=== PATIENT | female | born 2000 | race African-American/Black ===

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

== ENCOUNTER 2019-06-10 12:27 | Emergency (ER) | payer OTHER ==
--- NOTE | 2019-06-10 12:59 | ER Document Report ---
ED Medical Screen (RME) - General Chief Complaint: Abdominal Cramping Stated Complaint: ABDOMINAL CRAMPING Time Seen by Provider: 06/10/19 12:55 Primary Care Provider: KAVON ANDREWS MD [Primary Care Provider] - Follow up as needed Mode of Arrival: Ambulatory Information source: Patient Notes: 19-year-old female presented to ED for lower abdominal/pelvic cramping. She states she has had this pain for about 2 weeks. She states she does have frequent urination but no urgency or pain. She states she did have vaginal spotting for about 5 days but that has stopped she states she has very irregular periods and she is aware that last regular menstrual cycle was in the middle of May. Dates she has had nausea no vomiting 2 stools a day, denies any fever. States the cramping is on both sides. She states she was smoking 2 to 3 cigarettes a day but has not smoked in a couple months. States drinks maybe once a month. He denies any illicit drugs. Has any past medical history. States her blood pressure has been high but she has not seen a doctor for it and does not take medications for it. I have greeted and performed a rapid initial assessment of this patient. A comprehensive ED assessment and evaluation of the patient, analysis of test results and completion of medical decision making process will be conducted by an additional ED providers. TRAVEL OUTSIDE OF THE [place] IN LAST 30 DAYS: No - Related Data Allergies/Adverse Reactions: No Known Allergies Allergy (Verified 12/31/18 08:51) Past Medical History Renal/ Medical History: Denies: Hx Peritoneal Dialysis - Immunizations Immunizations up to date: Yes Hx Diphtheria, Pertussis, Tetanus Vaccination: Yes Physical Exam - Vital signs Vitals: Temp Pulse Resp BP Pulse Ox 98.3 F 109 H 18 141/90 H 100 06/10/19 12:41 06/10/19 12:41 06/10/19 12:41 06/10/19 12:41 06/10/19 12:41 Course - Vital Signs Vital signs: Temp Pulse Resp BP Pulse Ox 98.3 F 109 H 18 141/90 H 100 06/10/19 12:41 06/10/19 12:41 06/10/19 12:41 06/10/19 12:41 06/10/19 12:41 Doctor's Discharge - Discharge Referrals: KAVON ANDREWS MD [Primary Care Provider] - Follow up as needed
[2019-06-10] MEDS ORDERED: NORMAL SALINE 1000 ML 1,000 ML IV ONE (13:00)
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
[2019-06-10 13:54] LABS: APPEARANCE,URINE CLEAR; BILIRUBIN,URINE NEGATIVE (NEGATIVE); COLOR,URINE YELLOW; GLUCOSE, URINE NEGATIVE (NEGATIVE); KETONES,URINE NEGATIVE (NEGATIVE); PROTEIN,URINE NEGATIVE (NEGATIVE); URINE SPECIFIC GRAVITY 1.005; UROBILINOGEN,URINE NEGATIVE mg/dL (<2.0)
[2019-06-10 14:10] LABS: ABSOLUTE BASOPHILS # (AUTO) 0.1 10^3/uL (0.0-0.2); ABSOLUTE EOSINOPHILS # (AUTO) 0.1 10^3/uL (0.0-0.6); ABSOLUTE LYMPHOCYTES (AUTO) 2.7 10^3/uL (0.5-4.7); ABSOLUTE MONOCYTES (AUTO) 0.7 10^3/uL (0.1-1.4); ABSOLUTE NEUT (AUTO) 3.8 10^3/uL (1.7-8.2); BASOPHILS % (AUTO) 0.9 % (0-2); EOSINOPHILS % (AUTO) 1.2 % (0-6); HEMATOCRIT 47.6 % (36.0-47.0); HEMOGLOBIN 15.9 g/dL (12.0-15.5); LYMPHOCYTES % (AUTO) 36.5 % (13-45); MEAN CORPUSCULAR HEMOGLOBIN 29.8 pg (27.0-33.4); MEAN CORPUSCULAR HGB CONC 33.4 g/dL (32.0-36.0); MEAN CORPUSCULAR VOLUME 89 fl (80-97); MONOCYTES % (AUTO) 9.7 % (3-13); PLATELET COUNT 399 10^3/uL (150-450); RED BLOOD COUNT 5.34 10^6/uL (3.72-5.28); RED CELL DISTRIBUTION WIDTH 13.1 % (11.5-14.0); SEGMENTED NEUTROPHILS % (AUTO) 51.7 % (42-78); TOTAL CELLS COUNTED % (AUTO) 100 %; WHITE BLOOD COUNT 7.3 10^3/uL (4.0-10.5)
[2019-06-10 14:29] LABS: ALBUMIN 4.7 g/dL (3.5-5.0); ALKALINE PHOSPHATASE 60 U/L (38-126); ANION GAP 13 (5-19); ASPARTATE AMINO TRANSFERASE 32 U/L (14-36); BILIRUBIN,DIRECT 0.1 mg/dL (0.0-0.4); BILIRUBIN,TOTAL 1.1 mg/dL (0.2-1.3); BLOOD UREA NITROGEN 8 mg/dL (7-20); CALCIUM 10.2 mg/dL (8.4-10.2); CARBON DIOXIDE 24 mmol/L (22-30); CHLORIDE 106 mmol/L (98-107); GLUCOSE 84 mg/dL (75-110); POTASSIUM 4.1 mmol/L (3.6-5.0); TOTAL PROTEIN 8.6 g/dL (6.3-8.2)
[2019-06-10 15:13] LABS: BACTERIA (WET MOUNT) 4+ BACTERIA SEEN; EPITHELIALS (WET MOUNT) 3+ EPITHELIALS SEEN; RBCS (WET MOUNT) RARE RBCS SEEN; T.VAGINALIS (WET MOUNT) NO TRICHOMONAS SEEN; WBCS (WET MOUNT) RARE WBCS SEEN; YEAST (WET MOUNT) NO YEAST SEEN
[2019-06-10] MEDS ORDERED: METRONIDAZOLE 500 MG TABLET PO ONE (15:17)
[2019-06-10] MEDS ORDERED: CEFTRIAXONE INJ 250 MG VIAL IM ONE (16:02)
[2019-06-10] MEDS ORDERED: AZITHROMYCIN 250 MG TABLET PO ONE (16:03)
[2019-06-10] MEDS ORDERED: LIDOCAINE 1% INJ (10 MG/ML) 10 ML MDV INJ ONE (16:03)
[2019-06-10 16:34] LABS: CHLAM PCR NOT DETECTED (NOT DETECT)
--- NOTE | 2019-06-10 17:11 | RADIOLOGY REPORT (SQ) ---
EXAM DESCRIPTION: U/S NON OB PEL TV W/DOPPLER COMPLETED DATE/TIME: 06/10/2019 4:14 pm REASON FOR STUDY: pelvic pain COMPARISON: None. TECHNIQUE: Dynamic and static grayscale images acquired of the pelvis via transvaginal approach and recorded on PACS. Additional selected color Doppler and spectral images recorded. LIMITATIONS: None. FINDINGS: UTERUS: Contour normal. No mass. ENDOMETRIAL STRIPE: No focal or generalized thickening. No masses. CERVIX: The cervix measures 2.8 cm in length. Small Nabothian cyst measures 5 x 5 x 4 mm. RIGHT OVARY AND DOPPLER: Normal size. A 1.4 x 1.5 x 1.5 cm dominant follicle. Normal arterial vascu lar flow without evidence for torsion. LEFT OVARY AND DOPPLER: Normal size. No worrisome masses. Normal arterial vascular flow without evide nce for torsion. FREE FLUID: None noted. OTHER: No other significant finding. MEASUREMENTS: UTERUS: 7.9 x 2.5 x 3.1 cm ENDOMETRIAL STRIPE: 4 mm RIGHT OVARY: 3.6 x 3.8 x 2.4 cm LEFT OVARY: 0.6 x 2.6 x 2.2 cm IMPRESSION: 1. Dominant right ovarian follicle. 2. Small Nabothian cyst in the cervix region. TECHNICAL DOCUMENTATION: JOB ID: [id number] [employer]- All Rights Reserved Rev-12/21 Reading location - IP/workstation name: [email or web address]
[2019-06-10] MEDS ORDERED: NORMAL SALINE 1000 ML 1,000 ML IV PRN (17:20)
[2019-06-10 18:15] VITALS: BP 131/62
== END 2019-06-10 18:16 | disposition home or self-care (01) ==
LOC: ER 12:27
DX: N76.0 Acute vaginitis (principal); B96.89 Other specified bacterial agents as the cause of diseases classified elsewhere; R10.9 Unspecified abdominal pain; R10.30 Lower abdominal pain, unspecified; R10.2 Pelvic and perineal pain; R35.0 Frequency of micturition; Z87.891 Personal history of nicotine dependence
CPT/HCPCS: 99284; 96372; 36415; 87210; 84702; 83690; 85025; 80053; 81001; 87491; 87591; 76830; 93976; J0696

== ENCOUNTER 2020-07-12 21:30 | Emergency (ER) | payer OTHER ==
[2020-07-12 21:39] VITALS: BP 134/75
--- NOTE | 2020-07-12 21:54 | ER Document Report ---
ED Medical Screen (RME) - General Chief Complaint: Abdominal Pain Stated Complaint: ABDOMINAL PAIN, BLEEDING Time Seen by Provider: 07/12/20 21:39 Notes: HPI: 20-year-old female reporting pelvic discomfort, discomfort with urination and some blood when wiping after urination over the last 2 days. Has not had fever or vomiting has had slight nausea. She denies vaginal bleeding or discharge. Patient believes she has a bladder infection PHYSICAL EXAMINATION: Obese abdomen. Mild tenderness across the suprapubic region on palpation. exam deferred in triage I have greeted and performed a rapid initial assessment of this patient. A comprehensive ED assessment and evaluation of the patient, analysis of test results and completion of medical decision making process will be conducted by an additional ED providers. TRAVEL OUTSIDE OF THE [place] IN LAST 30 DAYS: No - Related Data Allergies/Adverse Reactions: No Known Allergies Allergy (Verified 12/31/18 08:51) Past Medical History Renal/ Medical History: Denies: Hx Peritoneal Dialysis - Immunizations Immunizations up to date: Yes Hx Diphtheria, Pertussis, Tetanus Vaccination: Yes Physical Exam - Vital signs Vitals: Temp Pulse Resp BP Pulse Ox 98.7 F 116 H 20 134/75 H 98 07/12/20 21:39 07/12/20 21:39 07/12/20 21:39 07/12/20 21:39 07/12/20 21:39 Course - Vital Signs Vital signs: Temp Pulse Resp BP Pulse Ox 98.7 F 116 H 20 134/75 H 98 07/12/20 21:39 07/12/20 21:39 07/12/20 21:39 07/12/20 21:39 07/12/20 21:39
[2020-07-12 22:14] LABS: APPEARANCE,URINE SLIGHTLY-CLOUDY; BILIRUBIN,URINE NEGATIVE (NEGATIVE); COLOR,URINE YELLOW; GLUCOSE, URINE NEGATIVE (NEGATIVE); KETONES,URINE NEGATIVE (NEGATIVE); LEUKOCYTE ESTERASE,URINE NEGATIVE (NEGATIVE); NITRITE,URINE NEGATIVE (NEGATIVE); PROTEIN,URINE NEGATIVE (NEGATIVE); URINE SPECIFIC GRAVITY 1.021
== END 2020-07-13 01:32 | disposition left against medical advice (07) ==
LOC: ER 21:30
DX: R10.9 Unspecified abdominal pain (principal); R10.2 Pelvic and perineal pain; R31.9 Hematuria, unspecified; Z53.20 Procedure and treatment not carried out because of patient's decision for unspecified reasons
CPT/HCPCS: 81001; 81025; 99281